=== PATIENT | male | born 1950 | race American Indian/Alaskan Native ===

== ENCOUNTER 2021-09-03 19:17 | Observation (INO) | payer MEDICARE ==
[2021-09-03] MEDS ORDERED: SODIUM CHLORIDE 0.9% 500 ML 500 ML IV ONE (19:51)
[2021-09-03] MEDS ORDERED: NITROGLYCERIN 0.4 MG TAB SUBL SL PRN ×2 (19:51→23:46)
[2021-09-03] MEDS ORDERED: MORPHINE 4 MG/1 ML INJ IV ONE (19:51)
[2021-09-03] MEDS ORDERED: PANTOPRAZOLE 40 MG INJ IV ONE (19:51)
[2021-09-03] MEDS ORDERED: ONDANSETRON 4 MG/2 ML INJ IV ONE (19:51)
--- NOTE | 2021-09-03 19:56 | Emergency Department Report ---
ED General Adult HPI - General Chief complaint: Chest Pain Stated complaint: CHEST PAIN/N/V Time Seen by Provider: 09/03/21 19:44 Source: patient, EMS ( EMS documentation not available at time of chart dictation ), RN notes reviewed, old records reviewed Mode of arrival: Stretcher - History of Present Illness Initial comments: The patient is a pleasant 71-year-old gentleman. His past medical history includes CAD, [place] x2, stent x1, diabetes, hypertension, hyperlipidemia, and s troke. The patient presents to the ER today with a complaint of central chest pain which is constant, does not radiate to the back, arms or neck. He endorses vomiting. Denies diaphoresis. Denies shortness of breath. Complains of abdominal pain, with nausea and vomiting. He is not sure what started first, the chest pain, abdominal pain, or nausea and vomiting. As per nursing team, he endorsed relief with nitroglycerin, and aspirin in the field, administered by EMS -: Sudden, hour(s) Location: chest, abdomen Consistency: constant Improves with: medication, rest Worsens with: none - Related Data Home Medications Medication Instructions Recorded Confirmed Last Taken metFORMIN [Glucophage] 850 mg PO BID 08/16/14 08/16/14 Unknown Previous Rx's Medication Instructions Recorded Last Taken Type Aspirin [Aspirin BABY CHEW TAB] 81 mg PO QDAY #30 tab.chew 08/22/14 Unknown Rx Folic Acid [Folvite] 1 mg PO DAILY #30 tablet 08/22/14 Unknown Rx ISOSORBIDE MONOnitrate [Imdur ER] 30 mg PO QDAY #30 tablet 08/22/14 Unknown Rx Metoprolol [Lopressor TAB] 50 mg PO QDAY #60 tablet 08/22/14 Unknown Rx Multivitamin Tab [Multiple Vitamin 1 each PO DAILY #30 tablet 08/22/14 Unknown Rx TAB (Theragran)] Thiamine [Vitamin B-1] 100 mg PO QDAY #30 tablet 08/22/14 Unknown Rx lisinopriL [Zestril TAB] 20 mg PO BID #60 tablet 08/22/14 Unknown Rx Allergies Allergy/AdvReac Type Severity Reaction Status Date / Time No Known Allergies Allergy Verified 08/17/14 00:53 ED Review of Systems ROS: Stated complaint: CHEST PAIN/N/V Other details as noted in HPI Constitutional: denies: fever Eyes: denies: eye discharge ENT: denies: epistaxis Respiratory: denies: cough Cardiovascular: chest pain Gastrointestinal: abdominal pain, nausea, vomiting Genitourinary: denies: dysuria, testicular pain Neurological: denies: weakness Hematological/Lymphatic: denies: easy bleeding ED Past Medical Hx - Past Medical History 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 - Surgical History Additional Surgical History: one stent - Social History Smoking Status: Never Smoker - Medications Home Medications: Home Medications Medication Instructions Recorded Confirmed Last Taken Type metFORMIN [Glucophage] 850 mg PO BID 08/16/14 08/16/14 Unknown History Aspirin [Aspirin BABY CHEW TAB] 81 mg PO QDAY #30 tab.chew 08/22/14 Unknown Rx Folic Acid [Folvite] 1 mg PO DAILY #30 tablet 08/22/14 Unknown Rx ISOSORBIDE MONOnitrate [Imdur ER] 30 mg PO QDAY #30 tablet 08/22/14 Unknown Rx Metoprolol [Lopressor TAB] 50 mg PO QDAY #60 tablet 08/22/14 Unknown Rx Multivitamin Tab [Multiple Vitamin 1 each PO DAILY #30 tablet 08/22/14 Unknown Rx TAB (Theragran)] Thiamine [Vitamin B-1] 100 mg PO QDAY #30 tablet 08/22/14 Unknown Rx lisinopriL [Zestril TAB] 20 mg PO BID #60 tablet 08/22/14 Unknown Rx ED Physical Exam - General Limitations: No Limitations General appearance: alert, anxious, obese - Head Head exam: Present: atraumatic, normocephalic - Eye Eye exam: Present: normal appearance, EOMI. Absent: nystagmus - ENT ENT exam: Present: normal exam, normal orophraynx, mucous membranes moist, normal external ear exam - Neck Neck exam: Present: normal inspection, full ROM. Absent: tenderness, me ningismus - Respiratory Respiratory exam: Present: normal lung sounds bilaterally. Absent: respiratory distress, wheezes, rales, rhonchi, stridor, decreased breath sounds - Cardiovascular Cardiovascular Exam: Present: regular rate, normal rhythm, normal heart sounds. Absent: bradycardia, tachycardia, irregular rhythm, systolic murmur, diastolic murmur, rubs, gallop - GI/Abdominal GI/Abdominal exam: Present: soft, tenderness. Absent: distended, guarding, rebound, rigid, pulsatile mass - Rectal Rectal exam: Present: deferred - Extremities Exam Extremities exam: Present: normal inspection, full ROM, other (2+ pulses noted in the bilateral upper and lower extremities. There is no palpable cord. negative Homans sign. Muscular compartments are soft. The pelvis is stable.). Absent: pedal edema, calf tenderness - Back Exam Back exam: Present: normal inspection. Absent: tenderness, CVA tenderness (R), CVA tenderness (L), paraspinal tenderness, vertebral tenderness - Neurological Exam Neurological exam: Present: alert, other (No facial droop. Tongue midline. Extraocular movements intact bilaterally. Facial sensation intact to light touch in V1, V2, V3 distribution bilaterally. 5 and a 5 strength in 4 ext remities. Sensation intact to light touch in 4 extremities.). Absent: motor sensory deficit - Psychiatric Psychiatric exam: Present: anxious - Skin Skin exam: Present: warm, dry, intact, normal color. Absent: rash ED Course Vital Signs 09/03/21 09/03/21 09/03/21 19:39 19:46 20:00 Temperature Pulse Rate 94 H 86 Respiratory 15 20 20 Rate Blood Pressure 158/99 168/94 O2 Sat by Pulse 98 96 96 Oximetry O2 Sat by Pulse Oximetry [ Digit-Finger] 09/03/21 09/03/21 09/03/21 20:16 20:27 20:30 Temperature 97.9 F Pulse Rate 88 Respiratory 17 16 Rate Blood Pressure 168/94 158/98 O2 Sat by Pulse 96 99 Oximetry O2 Sat by Pulse Oximetry [ Digit-Finger] 09/03/21 09/03/21 09/03/21 20:46 21:00 21:02 Temperature Pulse Rate 96 H 87 Respiratory 14 14 Rate Blood Pressure 158/98 172/97 O2 Sat by Pulse 98 97 98 Oximetry O2 Sat by Pulse Oximetry [ Digit-Finger] 09/03/21 09/03/21 09/03/21 21:16 21:30 21:46 Temperature Pulse Rate 88 89 91 H Respiratory 13 14 17 Rate Blood Pressure 172/97 162/95 162/95 O2 Sat by Pulse 97 97 97 Oximetry O2 Sat by Pulse Oximetry [ Digit-Finger] 09/03/21 09/03/21 09/03/21 22:00 22:16 22:28 Temperature Pulse Rate 89 Respiratory 20 12 Rate Blood Pressure 145/83 145/83 O2 Sat by Pulse 94 96 Oximetry O2 Sat by Pulse 98 Oximetry [ Digit-Finger] - Reevaluation(s) Reevaluation #1: 09/03/21 20:18 Differential diagnosis, include but not limited to: GERD, gastritis, hiatal hernia, pneumonia, costochondritis, acute coronary syndrome, pulmonary embolism, colitis, diverticulitis, obstruction, renal colic, pancreatitis Assessment and plan: 71-year-old gentleman with chest pain, nausea and vomiting, and abdominal tenderness. Denies travel, surgery, immobilization, DVT/PE risk factors. Not hypertensive, equal pulses in the upper and lower extremities, no pulsatile abdominal mass, doubt acute aortic syndrome. Suspect primary abdominal/GI etiology, causing nausea and vomiting, with subse quent chest pain. However, patient moderate to high risk for major adverse cardiac event as per heart score. EKG unchanged from prior. Low risk by Wells criteria for pulmonary embolism. Place patient on nurse monitoring. Obtain appropriate laboratory studies. Treat symptoms aggressively. X-ray the chest my interpretation negative for acute findings. Obtain CT scan of the abdomen pelvis, appropriate laboratory studies including troponin, and CT angiogram chest, if D-dimer elevated. Reassess after initial data points. Discussed this with the patient. He is agreeable to the plan of care. All questions answered. 09/03/21 23:46 CT scan of the chest negative for acute findings. CT scan abdomen pelvis suggestive of diverticulitis, pyelonephritis or both. Urinalysis not consistent with urinary tract infection. Antibiotics ordered. Patient received aspirin from EMS. Patient agreeable to admission for hospitalization for observation and treatment. Elevated lipase reviewed and appreciated. All questions answered. Hospital physician, Dr. Dieter Anders to admit to [facility] Medical decision makin-year-old gentleman with acute abdominal pain, nausea, vomiting and chest pain, requires admission for cardiac or stratification, antibiotics, and supportive care. - Pulse Oximetry Interpretation Digit-Finger Initial Pulse Oximetry Readin O2 Sat by Pulse Oximetry: 98 Actions Taken: none ED Medical Decision Making - Lab Data Result diagrams: 09/03/21 21:16 09/03/21 21:36 Lab Results 09/03/21 09/03/21 09/03/21 Range/Units 21:16 21:16 21:16 WBC 6.0 (4.5-11.0) K/mm3 RBC 4.01 (3.65-5.03) M/mm3 Hgb 12.2 (11.8-15.2) gm/dl Hct 37.1 (35.5-45.6) % MCV 93 (84-94) fl MCH 30 (28-32) pg MCHC 33 (32-34) % RDW 13.5 (13.2-15.2) % Plt Count 184 (140-440) K/mm3 Lymph % (Auto) 15.0 (13.4-35.0) % [place] % (Auto) 9.4 H (0.0-7.3) % Eos % (Auto) 0.1 (0.0-4.3) % Baso % (Auto) 0.9 (0.0-1.8) % Lymph # (Auto) 0.9 L (1.2-5.4) K/mm3 [place] # (Auto) 0.6 (0.0-0.8) K/mm3 Eos # (Auto) 0.0 (0.0-0.4) K/mm3 Baso # (Auto) 0.1 (0.0-0.1) K/mm3 Seg Neutrophils % 74.6 H (40.0-70.0) % Seg Neutrophils # 4.5 (1.8-7.7) K/mm3 PT 16.6 H (12.2-14.9) Sec. INR 1.20 H (0.87-1.13) D-Dimer 574.33 H (0-234) ng/mlDDU Sodium (137-145) mmol/L Potassium (3.6-5.0) mmol/L Chloride (98-107) mmol/L Carbon Dioxide (22-30) mmol/L Anion Gap mmol/L BUN (9-20) mg/dL Creatinine (0.8-1.3) mg/dL Estimated GFR ml/min BUN/Creatinine Ratio % Glucose (75-100) mg/dL Calcium (8.4-10.2) mg/dL Magnesium 1.80 (1.7-2.3) mg/dL Total Bilirubin (0.1-1.2) mg/dL Direct Bilirubin (0-0.2) mg/dL Indirect Bilirubin mg/dL AST (5-40) units/L ALT (7-56) units/L Alkaline Phosphatase (35-129) units/L Total Creatine Kinase 177 H (55-170) units/L Troponin T < 0.010 (0.00-0.029) ng/mL Total Protein (6.3-8.2) g/dL Albumin (3.9-5) g/dL Albumin/Globulin Ratio % Lipase (13-60) units/L // Range/Units 21:36 WBC (4.5-11.0) K/mm3 RBC (3.65-5.03) M/mm3 Hgb (11.8-15.2) gm/dl Hct (35.5-45.6) % MCV (84-94) fl MCH (28-32) pg MCHC (32-34) % RDW (13.2-15.2) % Plt Count (140-440) K/mm3 Lymph % (Auto) (13.4-35.0) % [place] % (Auto) (0.0-7.3) % Eos % (Auto) (0.0-4.3) % Baso % (Auto) (0.0-1.8) % Lymph # (Auto) (1.2-5.4) K/mm3 [place] # (Auto) (0.0-0.8) K/mm3 Eos # (Auto) (0.0-0.4) K/mm3 Baso # (Auto) (0.0-0.1) K/mm3 Seg Neutrophils % (40.0-70.0) % Seg Neutrophils # (1.8-7.7) K/mm3 PT (12.2-14.9) Sec. INR (0.87-1.13) D-Dimer (0-234) ng/mlDDU Sodium 144 (137-145) mmol/L Potassium 3.8 (3.6-5.0) mmol/L Chloride 100.0 (98-107) mmol/L Carbon Dioxide 24 (22-30) mmol/L Anion Gap 24 mmol/L BUN 15 (9-20) mg/dL Creatinine 1.3 (0.8-1.3) mg/dL Estimated GFR > 60 ml/min BUN/Creatinine Ratio 12 % Glucose 134 H (75-100) mg/dL Calcium 10.2 (8.4-10.2) mg/dL Magnesium (1.7-2.3) mg/dL Total Bilirubin 0.40 (0.1-1.2) mg/dL Direct Bilirubin < 0.2 (0-0.2) mg/dL Indirect Bilirubin 0.2 mg/dL AST 65 H (5-40) units/L ALT 35 (7-56) units/L Alkaline Phosphatase 64 (35-129) units/L Total Creatine Kinase (55-170) units/L Troponin T (0.00-0.029) ng/mL Total Protein 7.7 (6.3-8.2) g/dL Albumin 4.3 (3.9-5) g/dL Albumin/Globulin Ratio 1.3 % Lipase 130 H (13-60) units/L Vital Signs 09/03/21 09/03/21 09/03/21 19:39 19:46 20:00 Temperature Pulse Rate 94 H 86 Respiratory 15 20 20 Rate Blood Pressure 158/99 168/94 O2 Sat by Pulse 98 96 96 Oximetry O2 Sat by Pulse Oximetry [ Digit-Finger] 09/03/21 09/03/21 09/03/21 20:16 20:27 20:30 Temperature 97.9 F Pulse Rate 88 Respiratory 17 16 Rate Blood Pressure 168/94 158/98 O2 Sat by Pulse 96 99 Oximetry O2 Sat by Pulse Oximetry [ Digit-Finger] 09/03/21 09/03/21 09/03/21 20:46 21:00 21:02 Temperature Pulse Rate 96 H 87 Respiratory 14 14 Rate Blood Pressure 158/98 172/97 O2 Sat by Pulse 98 97 98 Oximetry O2 Sat by Pulse Oximetry [ Digit-Finger] 09/03/21 09/03/21 09/03/21 21:16 21:30 21:46 Temperature Pulse Rate 88 89 91 H Respiratory 13 14 17 Rate Blood Pressure 172/97 162/95 162/95 O2 Sat by Pulse 97 97 97 Oximetry O2 Sat by Pulse Oximetry [ Digit-Finger] 09/03/21 21:54 Temperature Pulse Rate Respiratory Rate Blood Pressure O2 Sat by Pulse Oximetry O2 Sat by Pulse 98 Oximetry [ Digit-Finger] - EKG Data -: EKG Interpreted by Me EKG shows normal: sinus rhythm Rate: normal - EKG Data 09/03/21 20:17 EKG #1 is interpreted at 19: 46 Sinus rhythm, rate 86 bpm. Left axis deviation. Normal P wave axis. Q waves noted in inferior leads. QTc 4 5 7 ms. Unchanged from prior EKG from August 2014. This is an abnormal EKG. This is not a STEMI - Radiology Data Radiology results: pending, report reviewed, image reviewed interpreted by me: 1 view x-ray of the chest, interpreted by myself, shows clear lungs, no infiltrate, no pneumothorax CHEST 1 VIEW INDICATION: Acute chest pain with nausea and. COMPARISON: 08/16/2014 FINDINGS: Support devices: None. Heart: Normal. Lungs/Pleura: No acute pulmonary or pleural findings. IMPRESSION: 1. No acute findings. Signer Name: Chava Esteban MD Signed: 09/03/2021 7:39 PM Workstation Name: [id number] CT ABDOMEN AND PELVIS WITH CONTRAST INDICATION / CLINICAL INFORMATION: Acute abdominal pain, with nausea and vomiting. TECHNIQUE: Axial CT images were obtained through the abdomen and pelvis after 100 cc Omnipaque [address] scans at this location are performed using CT dose reduction for ALARA by means of automated exposure control. COMPARISON: CT angiography of the chest performed same date FINDINGS: LOWER CHEST: Recent comparison study. LIVER: Diffuse low attenuation compatible with hepatic steatosis. Portal vein patent. GALLBLADDER: No significant abnormality. BILE DUCTS: No significant abnormality. SPLEEN: Punctate calcifications compatible prior granulomatous disease. PANCREAS: No significant abnormality. ADRENALS: Minimal nodularity of the bilate ral adrenal glands indeterminate for adenoma. RIGHT KIDNEY / URETER: Multiple small subcentimeter foci of hypoattenuation are noted compatible small cyst possibly infarcts. Additionally a larger cyst measuring approximately 1.3 cm projects in the lower pole right kidney. Mild renal vascular calcifications are present. No urolithiasis. Moderate perinephric fat stranding. LEFT KIDNEY / URETER: Multiple small cysts and/or infarcts are present. Minimal vascular calcifications are moderate. No urolithiasis. Moderate perinephric fat stranding. STOMACH / DUODENUM / SMALL BOWEL: No significant abnormality. COLON: Diverticulosis of the large bowel is demonstrated. Proximal sigmoid colon demonstrates minimal wall thickening without obvious inflammatory change. This may reflect lack of distention. APPENDIX: No significant abnormality. PERITONEUM: No free air or free fluid are present within the abdomen or pelvis. LYMPH NODES: No significant adenopathy. AORTA / ARTERIES: No significant abnormality. IVC / VEINS: No significant abnormality. URINARY BLADDER: No significant abnormality. REPRODUCTIVE ORGANS: Prostate appears enlarged. ADDITIONAL ABDOMINAL/PELVIC FINDINGS: None. SKELETAL SYSTEM: No acute osseous findings. Moderate facet arthropathy of the lower lumbar spine. IMPRESSION: 1. Diffuse hypoattenuation in the liver suggesting hepatic steatosis. 2. Moderate bilateral perinephric fat stranding. Nonspecific finding and could reflect evidence of infection or inflammatory process. Correlation with urinalysis and culture are recommended. 3. Bilateral adrenal nodules indeterminate for adenoma. 4. Total colonic diverticulosis with some regions of bowel wall thickening but no distinct inflammatory changes. These regions are not well distended and in part the appearance is thought to reflect lack of distention. Very early diverticulitis not excluded. Signer Name: Hair Hughes II, MD Signed: 09/03/2021 10:33 PM Workstation Name: [id number] CTA CHEST WITH CONTRAST INDICATION / CLINICAL INFORMATION: Acute chest pain with nausea and vomiting. TECHNIQUE: Axial CT images were obtained through the chest after injection of 100 cc Omnipaque 350 IV contrast. 3 plane MIP and/or 3D reconstructions were produced. All CT scans at this location are performed using CT dose reduction for ALARA by means of automated exposure control. COMPARISON: CT of the abdomen and pelvis performed same date. FINDINGS: VASCULAR FINDINGS: PULMONARY ARTERY: Pulmonary artery is normal in size. No filling defects are present compatible with pulmonary artery embolus.. THORACIC AORTA: No significant abnormality. CORONARY ARTERY CALCIFICATION: Present -- Severe. NONVASCULAR FINDINGS: LOWER NECK:Soft tissues of the lower neck and thyroid demonstrate no significant abnormalities or acute findings. HEART: No significant abnormality. MEDIASTINUM / VANIA: No significant abn ormality. ESOPHAGUS: No significant abnormality. LYMPH NODES: Partially calcified subcarinal, right hilar, right paratracheal lymph nodes are demonstrated. No pathologically enlarged lymph nodes are noted within the axilla, vania, mediastinum. LUNGS: Calcified granuloma right lower lobe. Lungs appear blurred by motion but otherwise are clear. No endobronchial lesions. PLEURA: No pleural effusion. No pneumothorax. THORACIC SOFT TISSUES: No significant abnormality of the chest wall or upper thoracic musculature. BONES: Mild to moderate degenerative changes of the thoracic spine. No acute osseous findings. ADDITIONAL CHEST FINDINGS: None. UPPER ABDOMEN: Please see comparison study. IMPRESSION: 1. No CT evidence for pulmonary embolism. 2. No acute findings. Signer Name: Hair Hughes II, MD Signed: 09/03/2021 10:29 PM Workstation Name: [id number] Critical care attestation.: If time is entered above; I have spent that time in minutes in the direct care of this critically ill patient, excluding procedure time. ED Disposition Clinical Impression: Acute chest pain, Acute abdominal pain Disposition: 09 ADMITTED INPATIENT Is pt being admited?: Yes Does the pt Need Aspirin: No (Given by EMS) Condition: Good Instructions: Chest Pain (ED) Referrals: PRIMARY CARE, [Primary Care Provider] - 3-5 Days Heart Score - HEART Score History: Moderately suspicious EKG: Non-specific Age: > 65 Risk factors: > 3 risk factors or hx of atherosclerotic disease Troponin: < normal limit HEART Score: 6 - EKG Read Time Time EKG Completed: 19:46 EKG Read Time: 19:46 - Critical Actions Critical Actions: 4-6 pts:12-16.6% risk of adverse cardiac event. Should be admitted
[2021-09-03] MEDS ORDERED: METOCLOPRAMIDE 10 MG/2 ML INJ IV ONE (20:28)
--- NOTE | 2021-09-03 20:44 | XRay Report ---
CHEST 1 VIEW INDICATION: Acute chest pain with nausea and. COMPARISON: 08/16/2014 FINDINGS: Support devices: None. Heart: Normal. Lungs/Pleura: No acute pulmonary or pleural findings. IMPRESSION: 1. No acute findings. Signer Name: Chava Esteban MD Signed: 09/03/2021 8:39 PM Workstation Name: [id number]
[2021-09-03 21:56] LABS: Basophils # (Auto) 0.1 K/mm3 (0.0-0.1); Basophils % (Auto) 0.9 % (0.0-1.8); Eosinophils % (Auto) 0.1 % (0.0-4.3); Hematocrit 37.1 % (35.5-45.6); Hemoglobin 12.2 gm/dl (11.8-15.2); Lymphocytes # (Auto) 0.9 K/mm3 (1.2-5.4); Mean Corpuscular HGB Conc 33 % (32-34); Mean Corpuscular Volume 93 fl (84-94); Monocytes # (Auto) 0.6 K/mm3 (0.0-0.8); Monocytes % (Auto) 9.4 % (0.0-7.3); Platelet Count 184 K/mm3 (140-440); Red Blood Count 4.01 M/mm3 (3.65-5.03); Red Cell Distribution Width 13.5 % (13.2-15.2)
[2021-09-03 22:14] LABS: INR 1.2 (0.87-1.13)
[2021-09-03 22:21] LABS: Alanine Aminotransferase 35 units/L (7-56); Albumin 4.3 g/dL (3.9-5); BUN/Creatinine Ratio 12; Blood Urea Nitrogen 15 mg/dL (9-20); Calcium 10.2 mg/dL (8.4-10.2); Hemolysis Index 5
[2021-09-03 22:23] LABS: Bilirubin,Direct < 0.2 mg/dL (0-0.2)
[2021-09-03 23:34] LABS: Bilirubin,Urine NEG (Negative); Blood,Urine NEG (Negative); Color,Urine Yellow (Yellow); Urobilinogen,Urine < 2.0 mg/dL (<2.0)
--- NOTE | 2021-09-03 23:34 | Cat Scan Report ---
CTA CHEST WITH CONTRAST INDICATION / CLINICAL INFORMATION: Acute chest pain with nausea and vomiting. TECHNIQUE: Axial CT images were obtained through the chest after injection of 100 cc Omnipaque 350 IV contrast. 3 plane MIP and/or 3D reconstructions were produced. All CT scans at this location are per formed using CT dose reduction for ALARA by means of automated exposure control. COMPARISON: CT of the abdomen and pelvis performed same date. FINDINGS: VASCULAR FINDINGS: PULMONARY ARTERY: Pulmonary artery is normal in size. No filling defects are present compatible with pulmonary artery embolus.. THORACIC AORTA: No significant abnormality. CORONARY ARTERY CALCIFICATION: Present -- Severe. NONVASCULAR FINDINGS: LOWER NECK:Soft tissues of the lower neck and thyroid demonstrate no significant abnormalities or acu te findings. HEART: No significant abnormality. MEDIASTINUM / BERNADINE: No significant abnormality. ESOPHAGUS: No significant abnormality. LYMPH NODES: Partially calcified subcarinal, right hilar, right paratracheal lymph nodes are demonstr ated. No pathologically enlarged lymph nodes are noted within the axilla, bernadine, mediastinum. LUNGS: Calcified granuloma right lower lobe. Lungs appear blurred by motion but otherwise are clear. No endobronchial lesions. PLEURA: No pleural effusion. No pneumothorax. THORACIC SOFT TISSUES: No significant abnormality of the chest wall or upper thoracic musculature. BONES: Mild to moderate degenerative changes of the thoracic spine. No acute osseous findings. ADDITIONAL CHEST FINDINGS: None. UPPER ABDOMEN: Please see comparison study. IMPRESSION: 1. No CT evidence for pulmonary embolism. 2. No acute findings. Signer Name: Hair Hughes II, MD Signed: 09/03/2021 11:29 PM Workstation Name: [id number]
--- NOTE | 2021-09-03 23:37 | Cat Scan Report ---
CT ABDOMEN AND PELVIS WITH CONTRAST INDICATION / CLINICAL INFORMATION: Acute abdominal pain, with nausea and vomiting. TECHNIQUE: Axial CT images were obtained through the abdomen and pelvis after 100 cc Omnipaque [address] scans at this location are performed using CT dose reduction for ALARA by means of automated exposure control. COMPARISON: CT angiography of the chest performed same date FINDINGS: LOWER CHEST: Recent comparison study. LIVER: Diffuse low attenuation compatible with hepatic steatosis. Portal vein patent. GALLBLADDER: No significant abnormality. BILE DUCTS: No significant abnormality. SPLEEN: Punctate calcifications compatible prior granulomatous disease. PANCREAS: No significant abnormality. ADRENALS: Minimal nodularity of the bilateral adrenal glands indeterminate for adenoma. RIGHT KIDNEY / URETER: Multiple small subcentimeter foci of hypoattenuation are noted compatible smal l cyst possibly infarcts. Additionally a larger cyst measuring approximately 1.3 cm projects in the l ower pole right kidney. Mild renal vascular calcifications are present. No urolithiasis. Moderate per inephric fat stranding. LEFT KIDNEY / URETER: Multiple small cysts and/or infarcts are present. Minimal vascular calcificatio ns are moderate. No urolithiasis. Moderate perinephric fat stranding. STOMACH / DUODENUM / SMALL BOWEL: No significant abnormality. COLON: Diverticulosis of the large bowel is demonstrated. Proximal sigmoid colon demonstrates minimal wall thickening without obvious inflammatory change. This may reflect lack of distention. APPENDIX: No significant abnormality. PERITONEUM: No free air or free fluid are present within the abdomen or pelvis. LYMPH NODES: No significant adenopathy. AORTA / ARTERIES: No significant abnormality. IVC / VEINS: No significant abnormality. URINARY BLADDER: No significant abnormality. REPRODUCTIVE ORGANS: Prostate appears enlarged. ADDITIONAL ABDOMINAL/PELVIC FINDINGS: None. SKELETAL SYSTEM: No acute osseous findings. Moderate facet arthropathy of the lower lumbar spine. IMPRESSION: 1. Diffuse hypoattenuation in the liver suggesting hepatic steatosis. 2. Moderate bilateral perinephric fat stranding. Nonspecific finding and could reflect evidence of in fection or inflammatory process. Correlation with urinalysis and culture are recommended. 3. Bilateral adrenal nodules indeterminate for adenoma. 4. Total colonic diverticulosis with some regions of bowel wall thickening but no distinct inflammato ry changes. These regions are not well distended and in part the appearance is thought to reflect lac k of distention. Very early diverticulitis not excluded. Signer Name: Hair Hughes II, MD Signed: 09/03/2021 11:33 PM Workstation Name: [id number]
[2021-09-03] MEDS ORDERED: metroNIDAZOLE/NS 500 MG/100 ML 500 MG/100 ML BAG IV NR (23:45)
[2021-09-03] MEDS ORDERED: ONDANSETRON 4 MG/2 ML INJ IV PRN (23:46)
[2021-09-03] MEDS ORDERED: traMADol 50 MG TAB PO PRN (23:46)
[2021-09-03] MEDS ORDERED: MORPHINE 4 MG/1 ML INJ IV PRN ×2 (23:46)
[2021-09-03] MEDS ORDERED: MAGNESIUM HYDROXIDE (MOM) ORAL LIQD UDC PO PRN (23:46)
[2021-09-03] MEDS ORDERED: MORPHINE 2 MG/1 ML INJ IV PRN (23:46)
[2021-09-03] MEDS ORDERED: ACETAMINOPHEN 325 MG TAB PO PRN ×2 (23:46)
[2021-09-03] MEDS ORDERED: DEXTROSE 50% IN WATER (25GM) 50 ML SYRINGE IV PRN (23:52)
--- NOTE | 2021-09-03 23:59 | History and Physical Report ---
History of Present Illness Date of examination: 09/03/21 Date of admission: 09/03/2021 Chief complaint: Chest Pain Nausea and Vomiting History of present illness: 1-year-old -U[place] male with known history of coronary artery disease, history of [place] x2 with stent placement in the past, diabetes mellitus, hypertension, hyperlipidemia, CVA presenting to the emergency room today complaining of chest pain. Chest pain is said to be substernal and radiating towards the back, left upper extremity in the neck. Patient has also had some nausea and vomiting with associated abdominal discomfort. Abdominal pain is more in the epigastric region. He denies any fever or chills, no headache or dizziness and no diaphoresis. Patient denies any shortness of breath, no hematemesis, no constipation or diarrhea. Denies any hematuria or dysuria. Patient denies any sick contacts and no recent travel. Denies any contact with anyone with COVID-19. Patient had sublingual nitroglycerin and aspirin prior to arriving in the emergency room with good relief. Work-up in the emergency room today, lab was significant for elevated D-dimer of 574, lipase of 130. Chest x-ray shows no acute findings. CT angiogram of the chest shows no acute abnormality. CT abdomen and pelvis reveals findings suggesting hepatic steatosis. LE diverticulitis can also not be excluded. There is also moderate bilateral perinephric fat stranding. Findings could reflect evidence of infection or inflammatory process Patient commenced on empiric IV antibiotics. Will also be admitted for chest pain work-up. Past History Past Medical History: acute LA (X2 with stent placement), CAD, diabetes, hypertension, hyperlipidemia, stroke Past Surgical History: PTCA Social history: no significant social history Family history: no significant family history Medications and Allergies Allergies Allergy/AdvReac Type Severity Reaction Status Date / Time No Known Allergies Allergy Verified 08/17/14 00:53 Home Medications Medication Instructions Recorded Confirmed Last Taken Type metFORMIN [Glucophage] 850 mg PO BID 08/16/14 08/16/14 Unknown History Aspirin [Aspirin BABY CHEW TAB] 81 mg PO QDAY #30 tab.chew 08/22/14 Unknown Rx Folic Acid [Folvite] 1 mg PO DAILY #30 tablet 08/22/14 Unknown Rx ISOSORBIDE MONOnitrate [Imdur ER] 30 mg PO QDAY #30 tablet 03/16/15 Unknown Rx Metoprolol [Lopressor TAB] 50 mg PO QDAY #60 tablet 08/22/14 Unknown Rx Multivitamin Tab [Multiple Vitamin 1 each PO DAILY #30 tablet 08/22/14 Unknown Rx TAB (Theragran)] Thiamine [Vitamin B-1] 100 mg PO QDAY #30 tablet 08/22/14 Unknown Rx lisinopriL [Zestril TAB] 20 mg PO BID #60 tablet 08/22/14 Unknown Rx Active Meds: Active Medications Acetaminophen (Acetaminophen 325 Mg Tab) 650 mg PO Q4H PRN PRN Reason: Pain MILD(1-3)/Fever >100.5/TAYLOR Acetaminophen (Acetaminophen 325 Mg Tab) 650 mg PO Q6H PRN PRN Reason: Pain, Mild (1-3) Aspirin (Aspirin Ec 325 Mg Tab) 325 mg PO QDAY DEV Dextrose (Dextrose 50% In Water (25gm) 50 Ml Syringe) 50 ml IV Q30MIN PRN; Protocol PRN Reason: Hypoglycemia Levofloxacin/Dextrose (Levaquin 750mg/150ml) 750 mg in 150 mls @ 100 mls/hr IV ONCE ONE; Protocol Stop: 09/04/21 01:10 Metronidazole (Flagyl 500 Mg/100 Ml) 500 mg in 100 mls @ 200 mls/hr IV NOW NR; Protocol Stop: 09/04/21 00:14 Insulin Human Lispro (Insulin Lispro 100 Unit/Ml) 0 unit SUB-Q ACHS DEV; Protocol Magnesium Hydroxide (Magnesium Hydroxide (Mom) Oral Liqd Udc) 30 ml PO Q4H PRN PRN Reason: Constipation Morphine Sulfate (Morphine 2 Mg/1 Ml Inj) 2 mg IV Q4H PRN PRN Reason: Pain, Moderate (4-6) Morphine Sulfate (Morphine 4 Mg/1 Ml Inj) 4 mg IV Q4H PRN PRN Reason: Pain , Severe (7-10) Morphine Sulfate (Morphine 4 Mg/1 Ml Inj) 2 mg IV Q5MIN PRN PRN Reason: Chest Pain unrelieved by NTG Nitroglycerin (Nitroglycerin 0.4 Mg Tab Subl) 0.4 mg SL .Q5MIN PRN PRN Reason: Chest Pain Nitroglycerin (Nitroglycerin 0.4 Mg Tab Subl) 0.4 mg SL Q5M PRN PRN Reason: Chest Pain Ondansetron HCl (Ondansetron 4 Mg/2 Ml Inj) 4 mg IV Q8H PRN PRN Reason: Nausea And Vomiting Sodium Chloride (Sodium Chloride 0.9% 10 Ml Flush Syringe) 10 ml IV BID DEV Sodium Chloride (Sodium Chloride 0.9% 10 Ml Flush Syringe) 10 ml IV PRN PRN PRN Reason: LINE FLUSH Tramadol HCl (Tramadol 50 Mg Tab) 50 mg PO Q6H PRN PRN Reason: Pain, Moderate (4-6) Review of Systems Constitutional: no fever, no chills Ears, nose, mouth and throat: no nasal congestion, no sore throat Cardiovascular: chest pain, no palpitations Respiratory: no cough, no shortness of breath Gastrointestinal: abdominal pain, nausea, vomiting, no diarrhea, no BRBPR, no melena Genitourinary Male: no dysuria, no hematuria, no flank pain Musculoskeletal: no neck pain, no low back pain Integumentary: no rash, no pruritis Neurological: no headaches, no confusion Psychiatric: no anxiety, no depression Endocrine: no polyphagia, no polydipsia, no polyuria, no nocturia Exam - Constitutional Vitals: Temp Pulse Resp BP Pulse Ox 97.9 F 89 12 145/83 98 09/03/21 20:27 09/03/21 22:00 09/03/21 22:16 09/03/21 22:16 09/03/21 23:47 General appearance: Present: no acute distress, well-nourished - EENT Eyes: Present: PERRL, EOM intact. Absent: scleral icterus ENT: hearing intact, clear oral mucosa, dentition normal - Neck Neck: Present: supple, normal ROM - Respiratory Respiratory effort: normal Respiratory: bilateral: CTA - Cardiovascular Rhythm: regular Heart Sounds: Present: S1 & S2. Absent: gallop, systolic murmur, diastolic murmur, rub, click - Extremities Extremities: no ischemia, pulses intact, pulses symmetrical, No edema, normal temperature, normal color, Full ROM Peripheral Pulses: within normal limits - Abdominal General gastrointestinal: Present: soft, non-tender, non-distended, normal bowel sounds. Absent: mass - Integumentary Integumentary: Present: clear, warm, dry, normal turgor. Absent: rash - Musculoskeletal Musculoskeletal: strength equal bilaterally - Psychiatric Psychiatric: appropriate mood/affect, intact judgment & insight, memory intact, cooperative - Neurologic Neurologic: CNII-XII intact, no focal deficits, moves all extremities HEART Score - HEART Score History: Slightly suspicious EKG: Non-specific Age: > 65 Risk factors: > 3 risk factors or hx of atherosclerotic disease Troponin: Troponin T < 0.010 ng/mL (0.00-0.029) 09/03/21 21:16 Troponin: < normal limit HEART Score: 5 - Critical Actions Critical Actions: 4-6 pts:12-16.6% risk of adverse cardiac event. Should be admitted Results - Labs CBC & Chem 7: 09/03/21 21:16 09/03/21 21:36 Labs: Abnormal lab results 09/03/21 09/03/21 09/03/21 Range/Units 21:16 21:16 21:16 [place] % (Auto) 9.4 H (0.0-7.3) % Lymph # (Auto) 0.9 L (1.2-5.4) K/mm3 Seg Neutrophils % 74.6 H (40.0-70.0) % PT 16.6 H (12.2-14.9) Sec. INR 1.20 H (0.87-1.13) D-Dimer 574.33 H (0-234) ng/mlDDU Glucose (75-100) mg/dL AST (5-40) units/L Total Creatine Kinase 177 H (55-170) units/L Lipase (13-60) units/L Urine pH (5.0-7.0) 09/03/21 09/03/21 Range/Units 21:36 23:18 [place] % (Auto) (0.0-7.3) % Lymph # (Auto) (1.2-5.4) K/mm3 Seg Neutrophils % (40.0-70.0) % PT (12.2-14.9) Sec. INR (0.87-1.13) D-Dimer (0-234) ng/mlDDU Glucose 134 H (75-100) mg/dL AST 65 H (5-40) units/L Total Creatine Kinase (55-170) units/L Lipase 130 H (13-60) units/L Urine pH 8.0 H (5.0-7.0) Assessment and Plan - Patient Problems (1) Acute chest pain Current Visit: Yes Status: Acute Plan to address problem: Patient placed on telemetry. We will check serial cardiac enzymes. Consult placed to cardiology for evaluation and recommendations. Patient started on aspirin, sublingual nitroglycerin and IV morphine as needed for chest pain. (2) Acute abdominal pain Current Visit: Yes Status: Acute Plan to address problem: Etiology unclear. CT abdomen cannot exclude early diverticulitis. Patient commenced on empiric IV antibiotics. (3) CAD (coronary artery disease) Current Visit: No Status: Chronic Plan to address problem: Patient is status post stent placement in the past. We will continue to monitor on telemetry. Await cardiology evaluation. (4) Diabetes Current Visit: No Status: Chronic Plan to address problem: Placed on sliding scale insulin. We will monitor Accu-Cheks. (5) History of stroke Current Visit: No Status: Chronic Plan to address problem: Stable. Continue on daily aspirin. (6) Hypertension Current Visit: No Status: Chronic Plan to address problem: We will resume routine home medications and monitor vital signs closely. (7) DVT prophylaxis Current Visit: Yes Status: Acute Plan to address problem: Patient placed on subcutaneous heparin. (8) Full code status Current Visit: Yes Status: Acute Plan to address problem: Patient is full code.
[2021-09-04] MEDS ORDERED: DEXTROSE 10% *Hypoglycemia IV PRN (00:01)
[2021-09-04 00:46] LABS: BUN/Creatinine Ratio 11; Blood Urea Nitrogen 16 mg/dL (9-20); Hemolysis Index 8
[2021-09-04] MEDS ORDERED: hydrALAZINE 20 MG/1 ML INJ IV PRN (03:59)
[2021-09-04] MEDS ORDERED: SODIUM CHLORIDE 0.9% 100 ML IVPB IV SCH (05:00)
[2021-09-04] MEDS ORDERED: SODIUM CHLORIDE 0.9% 1000 ML 1,000 ML IV SCH (05:15)
[2021-09-04] MEDS: HEPARIN 5,000 UNIT/1 ML VIAL SUB-Q SCH ×3 (06:00→21:23)
[2021-09-04 06:06] LABS: Basophils % (Auto) 0.2 % (0.0-1.8); Hematocrit 36.5 % (35.5-45.6); Hemoglobin 11.8 gm/dl (11.8-15.2); Lymphocytes # (Auto) 0.6 K/mm3 (1.2-5.4); Lymphocytes % (Auto) 8.9 % (13.4-35.0); Mean Corpuscular HGB Conc 32 % (32-34); Mean Corpuscular Volume 94 fl (84-94); Monocytes # (Auto) 0.6 K/mm3 (0.0-0.8); Platelet Count 182 K/mm3 (140-440); Red Blood Count 3.88 M/mm3 (3.65-5.03); Red Cell Distribution Width 13.4 % (13.2-15.2)
[2021-09-04 06:31] LABS: BUN/Creatinine Ratio 11; Blood Urea Nitrogen 15 mg/dL (9-20); Calcium 9.5 mg/dL (8.4-10.2); Hemolysis Index 4
[2021-09-04] MEDS: INSULIN LISPRO 100 UNIT/ML SUB-Q SCH ×3 (07:14→18:03)
[2021-09-04] MEDS ORDERED: REGADENOSON 0.4 MG/5 ML INJ IV ONE (07:51)
[2021-09-04] MEDS ORDERED: metroNIDAZOLE/NS 500 MG/100 ML 500 MG/100 ML BAG IV SCH (08:00)
[2021-09-04] MEDS: ASPIRIN EC 325 MG TAB PO SCH (10:30)
--- NOTE | 2021-09-04 10:51 | Nuclear Medicine Report ---
APPROVED REPORT Exam: Nuclear Stress Test Indication: Chest pain [id number] Ht: 5 ft 9 in Wt: 203 lbs BSA: 2.08 m2 HR: 91 bpmBP: 175/90 mmHgBMI: 29.97 Rhythm: Sinus Rhythm Stress Test Details Stress Test: Pharmacologic stress testing performed using 0.4 mg of regadenoson per 5 mL given IV over 10 seconds. Reason for pharmacologic stress test: physical limitation. HR Resting HR: 91 bpm Max HR Achieved: 122 bpm Max Heart Rate (APMHR): 148.817684 bpm Target HR (85% APMHR): 125.407059 bpm % of APMHR: 82.43 Recovery HR: 110 bpm BP Resting BP: 175/90 mmHg Max BP: 183/92 mmHg Recovery BP: 171/93 mmHg ECG Resting ECG: Sinus Rhythm Stress ECG: Sinus Tachycardia Clinical Reason for Termination: Completed protocol Stress Symptoms: None NM EXAM: Myocardial Perfusion REST/STRESS Imaging Protocol: Rest Tc-99m/Stress Tc-99m 1 day Resting Data Rest SPECT myocardial perfusion imaging was performed in supine position 45 minutes following the intravenous injection of 10 mCi of Tc-99m Myoview. Time of rest injection: 0700 Pharmacologic Stress Pharmacologic stress test was performed by injecting Regadenoson 0.4 mg IV push followed by the intravenous injection of 28 mCi of Tc-99m Myoview. Time of stress injection: 0840 Gated Stress SPECT was performed 30 minutes after stress injection. The images were gated to evaluate regional wall motion and calculate left ventricular ejection fraction. Study Quality Study: excellent Lung Uptake: Normal Perfusion Wall Motion The rest and stress images show normal left ventricular wall motion. Nuclear Conclusion ECG Findings: negative for ischemia Clinical Findings: negative for ischemia Nuclear Findings: negative for ischemia Exercise Capacity: not assessed Left Ventricular Function: normal Normal study. No scintigraphic evidence for myocardial ischemia or scar. Normal left ventricular size and function with no regional wall motion abnormalities.
--- NOTE | 2021-09-04 11:48 | Progress Note ---
Assessment and Plan Assessment and plan: 71-year-old -[place]enian male with known history of coronary artery disease, history of [place] x2 with stent placement in the past, diabetes mellitus, hypertension, hyperlipidemia, CVA presented to the emergency room today complaining of chest pain and abdominal pain. Work-up in the emergency room revealed a D-dimer of 574, lipase of 130. Chest x-ray shows no acute findings. CT angiogram of the chest shows no acute abnormality. CT abdomen and pelvis reveals findings suggesting hepatic steatosis. LE diverticulitis can also not be excluded. There is also moderate bilateral perinephric fat stranding. Findings could reflect evidence of infection or inflammatory process Chest pain Coronary artery disease Abdominal pain Diverticulitis Diabetes mellitus type 2 History of CVA Hypertension Perinephric stranding 09/04/2021. Continue IV antibiotics. ID consulted. The patient underwent str ess test this morning. Cardiology consulted. History Interval history: No new issues overnight. Hospitalist Physical - Constitutional Vitals: Temp Pulse Resp BP Pulse Ox 97.5 F L 73 17 172/95 99 09/04/21 05:33 09/04/21 06:00 09/04/21 07:45 09/04/21 08:43 09/04/21 05:33 General appearance: Present: no acute distress, well-nourished - EENT Eyes: Present: PERRL, EOM intact ENT: hearing intact, clear oral mucosa, dentition normal - Neck Neck: Present: supple, normal ROM - Respiratory Respiratory effort: normal Respiratory: bilateral: CTA - Cardiovascular Rhythm: regular Heart Sounds: Present: S1 & S2. Absent: gallop, rub - Extremities Extremities: no ischemia, No edema, Full ROM - Abdominal General gastrointestinal: soft, non-tender, non-distended, normal bowel sounds - Integumentary Integumentary: Present: clear, warm, dry - Neurologic Neurologic: CNII-XII intact, moves all extremities HEART Score - HEART Score EKG: Non-specific Age: > 65 Risk factors: > 3 risk factors or hx of atherosclerotic disease Troponin: Troponin T < 0.010 ng/mL (0.00-0.029) 09/04/21 05:34 Troponin: < normal limit - Critical Actions Critical Actions: 4-6 pts:12-16.6% risk of adverse cardiac event. Should be admitted Results - Labs CBC & Chem 7: 09/04/21 05:34 09/04/21 05:34 Labs: Laboratory Last Values WBC 6.9 K/mm3 (4.5-11.0) 09/04/21 05:34 RBC 3.88 M/mm3 (3.65-5.03) 09/04/21 05:34 Hgb 11.8 gm/dl (11.8-15.2) 09/04/21 05:34 Hct 36.5 % (35.5-45.6) 09/04/21 05:34 MCV 94 fl (84-94) 09/04/21 05:34 MCH 30 pg (28-32) 09/04/21 05:34 MCHC 32 % (32-34) 09/04/21 05:34 RDW 13.4 % (13.2-15.2) 09/04/21 05:34 Plt Count 182 K/mm3 (140-440) 09/04/21 05:34 Lymph % (Auto) 8.9 % (13.4-35.0) L 09/04/21 05:34 [place] % (Auto) 8.0 % (0.0-7.3) H 09/04/21 05:34 Eos % (Auto) 0.0 % (0.0-4.3) 09/04/21 05:34 Baso % (Auto) 0.2 % (0.0-1.8) 09/04/21 05:34 Lymph # (Auto) 0.6 K/mm3 (1.2-5.4) L 09/04/21 05:34 [place] # (Auto) 0.6 K/mm3 (0.0-0.8) 09/04/21 05:34 Eos # (Auto) 0.0 K/mm3 (0.0-0.4) 09/04/21 05:34 Baso # (Auto) 0.0 K/mm3 (0.0-0.1) 09/04/21 05:34 Seg Neutrophils % 82.9 % (40.0-70.0) H 09/04/21 05:34 Seg Neutrophils # 5.7 K/mm3 (1.8-7.7) 09/04/21 05:34 PT 16.6 Sec. (12.2-14.9) H 09/03/21 21:16 INR 1.20 (0.87-1.13) H 09/03/21 21:16 D-Dimer 574.33 ng/mlDDU (0-234) H 09/03/21 21:16 Sodium 140 mmol/L (137-145) 09/04/21 05:34 Potassium 4.9 mmol/L (3.6-5.0) 09/04/21 05:34 Chloride 98.3 mmol/L (98-107) 09/04/21 05:34 Carbon Dioxide 25 mmol/L (22-30) 09/04/21 05:34 Anion Gap 22 mmol/L 09/04/21 05:34 BUN 15 mg/dL (9-20) 09/04/21 05:34 Creatinine 1.4 mg/dL (0.8-1.3) H 09/04/21 05:34 Estimated GFR > 60 ml/min 09/04/21 05:34 BUN/Creatinine Ratio 11 % 09/04/21 05:34 Glucose 127 mg/dL (75-100) H 09/04/21 05:34 Calcium 9.5 mg/dL (8.4-10.2) 09/04/21 05:34 Magnesium 1.80 mg/dL (1.7-2.3) 09/03/21 21:16 Total Bilirubin 0.40 mg/dL (0.1-1.2) 09/03/21 21:36 Direct Bilirubin < 0.2 mg/dL (0-0.2) 09/03/21 21:36 Indirect Bilirubin 0.2 mg/dL 09/03/21 21:36 AST 65 units/L (5-40) H 09/03/21 21:36 ALT 35 units/L (7-56) 09/03/21 21:36 Alkaline Phosphatase 64 units/L (35-129) 09/03/21 21:36 Total Creatine Kinase 177 units/L (55-170) H 09/03/21 21:16 Troponin T < 0.010 ng/mL (0.00-0.029) 09/04/21 05:34 Total Protein 7.7 g/dL (6.3-8.2) 09/03/21 21:36 Albumin 4.3 g/dL (3.9-5) 09/03/21 21:36 Albumin/Globulin Ratio 1.3 % 09/03/21 21:36 Lipase 130 units/L (13-60) H 09/03/21 21:36 Urine Color Yellow (Yellow) 09/03/21 23:18 Urine Turbidity Clear (Clear) 09/03/21 23:18 Urine pH 8.0 (5.0-7.0) H 09/03/21 23:18 Ur Specific [place] 1.018 (1.003-1.030) 09/03/21 23:18 Urine Protein 100 mg/dl mg/dL (Negative) 09/03/21 23:18 Urine Glucose (UA) Neg mg/dL (Negative) 09/03/21 23:18 Urine Ketones Tr mg/dL (Negative) 09/03/21 23:18 Urine Blood Neg (Negative) 09/03/21 23:18 Urine Nitrite Neg (Negative) 09/03/21 23:18 Urine Bilirubin Neg (Negative) 09/03/21 23:18 Urine Urobilinogen < 2.0 mg/dL (<2.0) 09/03/21 23:18 Ur Leukocyte Esterase Neg (Negative) 09/03/21 23:18 Urine WBC (Auto) 4.0 /HPF (0.0-6.0) 09/03/21 23:18 Urine RBC (Auto) 1.0 /HPF (0.0-6.0) 09/03/21 23:18 U Epithel Cells (Auto) 1.0 /HPF (0-13.0) 09/03/21 23:18 [place]/IV: Voiding Method Urinal Active Medications - Current Medications Current Medications: Generic Name Dose Route Start Last Admin Trade Name Freq PRN Reason Stop Dose Admin Acetaminophen 650 mg 09/03/21 23:46 Acetaminophen 325 Mg Tab PO Q4H PRN Pain MILD(1-3)/Fever >100.5/[place]OR Aspirin 325 mg 09/04/21 10:00 09/04/21 10:30 Aspirin Ec 325 Mg Tab PO 325 mg QDAY DEV Administration Dextrose 0 ml 09/04/21 00:01 Dextrose 10% *Hypoglycemia IV PRN PRN Hypoglycemia Heparin Sodium (Porcine) 5,000 unit 09/04/21 06:00 09/04/21 06:00 Heparin 5,000 Unit/1 Ml Vial SUB-Q 5,000 unit Q8HR DEV Administration Hydralazine HCl 10 mg 09/04/21 03:59 09/04/21 06:00 Hydralazine 20 Mg/1 Ml Inj IV 10 mg Q6HR PRN Administration Hypertension Levofloxacin/Dextrose 750 mg in 150 mls @ 100 mls/hr 09/04/21 23:00 Levaquin 750mg/150ml IV Q24H DEV Protocol Metronidazole 500 mg in 100 mls @ 100 mls/hr 09/04/21 08:00 09/04/21 10:29 Flagyl 500 Mg/100 Ml IV 100 mls/hr Q8H DEV Administration Protocol Sodium Chloride 1,000 mls @ 75 mls/hr 09/04/21 05:15 09/04/21 05:59 Nacl 0.9% 1000 Ml IV 75 mls/hr DIRECT DEV Administration Insulin Human Lispro 0 unit 09/04/21 07:30 09/04/21 07:14 Insulin Lispro 100 Unit/Ml SUB-Q Not Given ACHS [facility] Protocol Magnesium Hydroxide 30 ml 09/03/21 23:46 Magnesium Hydroxide (Mom) Oral Liqd Udc PO Q4H PRN Constipation Morphine Sulfate 2 mg 09/03/21 23:46 09/04/21 07:15 Morphine 2 Mg/1 Ml Inj IV 2 mg Q4H PRN Administration Pain, Moderate (4-6) Morphine Sulfate 4 mg 09/03/21 23:46 Morphine 4 Mg/1 Ml Inj IV Q4H PRN Pain , Severe (7-10) Morphine Sulfate 2 mg 09/03/21 23:46 Morphine 4 Mg/1 Ml Inj IV Q5MIN PRN Chest Pain unrelieved by NTG Nitroglycerin 0.4 mg 09/03/21 23:46 Nitroglycerin 0.4 Mg Tab Subl SL Q5M PRN Chest Pain Ondansetron HCl 4 mg 09/03/21 23:46 09/04/21 08:30 Ondansetron 4 Mg/2 Ml Inj IV 4 mg Q8H PRN Administration Nausea And Vomiting Sodium Chloride 10 ml 09/04/21 10:00 09/04/21 10:30 Sodium Chloride 0.9% 10 Ml Flush Syringe IV 10 ml BID DEV Administration Sodium Chloride 10 ml 09/03/21 23:46 Sodium Chloride 0.9% 10 Ml Flush Syringe IV PRN PRN LINE FLUSH Tramadol HCl 50 mg 09/03/21 23:46 Tramadol 50 Mg Tab PO Q6H PRN Pain, Moderate (4-6)
--- NOTE | 2021-09-04 11:49 | Consultation ---
History of Present Illness - Reason for Consult Consult date: 09/04/21 - History of Present Illness 71 yo M arriving the emergency room male past medical history CAD, diabetes, hypertension, CVA presented to hospital complaining of chest pain. While the chest pain was his primary concern, he also noted nausea, vomiting, abdominal discomfort in the epigastric region. He otherwise denies any symptoms. His chest pain was alleviated with nitroglycerin and aspirin. Afebrile, normal white count. No cultures. Currently on Levaquin and metronidazole Imaging personally reviewed: CT abdomen pelvis: Hepatic steatosis. Bilateral perinephric fat stranding. Cannot exclude early diverticulitis. Chest CTA: No acute findings. Review of Systems: Bold if positive, otherwise negative General: fevers, chills, rigors HEENT: visual disturbance, diplopia, eye pain Respiratory: cough, sputum, hemoptysis, shortness of breath Cardiovascular: chest pain, syncope Gastrointestinal: nausea, vomiting, diarrhea, abdominal pain Genitourinary: dysuria, hematuria, flank pain Musculoskeletal: neck pain, back pain, joint pain, edema Neurologic: headaches, seizures Hematologic: easy bruising or bleeding Endocrine: night sweats, acute weight loss Skin: rash, jaundice, redness Psychiatric: suicidal, homicidal ideation Past History Past Medical History: acute [place] (X2 with stent placement), CAD, diabetes, hypertension, hyperlipidemia, stroke Past Surgical History: PTCA Social history: no significant social history Family history: no significant family history Medications and Allergies Allergies Allergy/AdvReac Type Severity Reaction Status Date / Time No Known Allergies Allergy Verified 08/17/14 00:53 Home Medications Medication Instructions Recorded Confirmed Last Taken Type metFORMIN [Glucophage] 850 mg PO BID 08/16/14 09/04/21 09/03/21 21:00 History Aspirin [Aspirin BABY CHEW TAB] 81 mg PO QDAY #30 tab.chew 08/22/14 09/04/21 09/03/21 09:00 Rx Folic Acid [Folvite] 1 mg PO DAILY #30 tablet 08/22/14 09/04/21 09/03/21 09:00 Rx ISOSORBIDE MONOnitrate [Imdur ER] 30 mg PO QDAY #30 tablet 08/22/14 09/04/21 09/03/21 09:00 Rx Metoprolol [Lopressor TAB] 50 mg PO QDAY #60 tablet 08/22/14 09/04/21 09/03/21 08:45 Rx Multivitamin Tab [Multiple Vitamin 1 each PO DAILY #30 tablet 08/22/14 09/04/21 09/03/21 09:00 Rx TAB (Theragran)] Thiamine [Vitamin B-1] 100 mg PO QDAY #30 tablet 08/22/14 09/04/21 09/03/21 09:00 Rx lisinopriL [Zestril TAB] 20 mg PO BID #60 tablet 08/22/14 09/04/21 09/03/21 21:00 Rx Glimepiride [Amaryl] 1 mg PO QAM 09/04/21 09/04/21 Unknown History Active Meds: Active Medications Acetaminophen (Acetaminophen 325 Mg Tab) 650 mg PO Q4H PRN PRN Reason: Pain MILD(1-3)/Fever >100.5/TAYLOR Aspirin (Aspirin Ec 325 Mg Tab) 325 mg PO QDAY DEV Last Admin: 09/04/21 10:30 Dose: 325 mg Dextrose (Dextrose 10% *Hypoglycemia) 0 ml IV PRN PRN PRN Reason: Hypoglycemia Heparin Sodium (Porcine) (Heparin 5,000 Unit/1 Ml Vial) 5,000 unit SUB-Q Q8HR DEV Last Admin: 09/04/21 06:00 Dose: 5,000 unit Hydralazine HCl (Hydralazine 20 Mg/1 Ml Inj) 10 mg IV Q6HR PRN PRN Reason: Hypertension Last Admin: 09/04/21 06:00 Dose: 10 mg Levofloxacin/Dextrose (Levaquin 750mg/150ml) 750 mg in 150 mls @ 100 mls/hr IV Q24H DEV; Protocol Metronidazole (Flagyl 500 Mg/100 Ml) 500 mg in 100 mls @ 100 mls/hr IV Q8H DEV; Protocol Last Admin: 09/04/21 10:29 Dose: 100 mls/hr Sodium Chloride (Nacl 0.9% 1000 Ml) 1,000 mls @ 75 mls/hr IV DIRECT DEV Last Admin: 09/04/21 05:59 Dose: 75 mls/hr Insulin Human Lispro (Insulin Lispro 100 Unit/Ml) 0 unit SUB-Q ACHS DEV; Protocol Last Admin: 09/04/21 07:14 Dose: Not Given Magnesium Hydroxide (Magnesium Hydroxide (Mom) Oral Liqd Udc) 30 ml PO Q4H PRN PRN Reason: Constipation Morphine Sulfate (Morphine 2 Mg/1 Ml Inj) 2 mg IV Q4H PRN PRN Reason: Pain, Moderate (4-6) Last Admin: 09/04/21 07:15 Dose: 2 mg Morphine Sulfate (Morphine 4 Mg/1 Ml Inj) 4 mg IV Q4H PRN PRN Reason: Pain , Severe (7-10) Morphine Sulfate (Morphine 4 Mg/1 Ml Inj) 2 mg IV Q5MIN PRN PRN Reason: Chest Pain unrelieved by NTG Nitroglycerin (Nitroglycerin 0.4 Mg Tab Subl) 0.4 mg SL Q5M PRN PRN Reason: Chest Pain Ondansetron HCl (Ondansetron 4 Mg/2 Ml Inj) 4 mg IV Q8H PRN PRN Reason: Nausea And Vomiting Last Admin: 09/04/21 08:30 Dose: 4 mg Sodium Chloride (Sodium Chloride 0.9% 10 Ml Flush Syringe) 10 ml IV BID DEV Last Admin: 09/04/21 10:30 Dose: 10 ml Sodium Chloride (Sodium Chloride 0.9% 10 Ml Flush Syringe) 10 ml IV PRN PRN PRN Reason: LINE FLUSH Tramadol HCl (Tramadol 50 Mg Tab) 50 mg PO Q6H PRN PRN Reason: Pain, Moderate (4-6) Physical Examination - Physical Exam Narrative exam: Physical Exam: Constitutional: Alert, cooperative. No acute distress Head, Ears, Nose: Normocephalic, atraumatic. External ears, nose normal Eyes: Conjunctivae/corneas clear. No icterus. No ptosis. Neck: Supple, no meningeal signs Oral: dentition fair, no thrush Cardiovascular: S1, S2 normal. Respiratory: Good air entry, clear to auscultation bilaterally GI: Soft, non-tender; bowel sounds normal. No peritoneal signs. Musculoskeletal: No pedal edema, no cyanosis. Skin: No rash or abscess Hem/Lymphatic: No palpable cervical or supraclavicular nodes. No lymphangitis Psych: Mood ok. Affect normal Neurological: Awake, alert, oriented. No gross abnormality - Constitutional Vitals: Vital Signs Temp Pulse Resp BP Pulse Ox 97.5 F L 73 17 172/95 99 09/04/21 05:33 09/04/21 06:00 09/04/21 07:45 09/04/21 08:43 09/04/21 05:33 Temperature -Last 24 Hours Temperature 97.5 F Temperature 98.2 F Temperature 97.9 F Results - Labs CBC & Chem 7: 09/04/21 05:34 09/04/21 05:34 Labs: Abnormal lab results 09/03/21 09/03/21 09/03/21 Range/Units 21:16 21:16 21:16 Lymph % (Auto) (13.4-35.0) % Cassia % (Auto) 9.4 H (0.0-7.3) % Lymph # (Auto) 0.9 L (1.2-5.4) K/mm3 Seg Neutrophils % 74.6 H (40.0-70.0) % PT 16.6 H (12.2-14.9) Sec. INR 1.20 H (0.87-1.13) D-Dimer 574.33 H (0-234) ng/mlDDU Chloride (98-107) mmol/L Creatinine (0.8-1.3) mg/dL Glucose (75-100) mg/dL AST (5-40) units/L Total Creatine Kinase 177 H (55-170) units/L Lipase (13-60) units/L Urine pH (5.0-7.0) 09/03/21 09/03/21 09/04/21 Range/Units 21:36 23:18 00:08 Lymph % (Auto) (13.4-35.0) % Cass[place] % (Auto) (0.0-7.3) % Lymph # (Auto) (1.2-5.4) K/mm3 Seg Neutrophils % (40.0-70.0) % PT (12.2-14.9) Sec. INR (0.87-1.13) D-Dimer (0-234) ng/mlDDU Chloride 96.6 L (98-107) mmol/L Creatinine 1.4 H (0.8-1.3) mg/dL Glucose 134 H 150 H (75-100) mg/dL AST 65 H (5-40) units/L Total Creatine Kinase (55-170) units/L Lipase 130 H (13-60) units/L Urine pH 8.0 H (5.0-7.0) 09/04/21 09/04/21 Range/Units 05:34 05:34 Lymph % (Auto) 8.9 L (13.4-35.0) % Cassia % (Auto) 8.0 H (0.0-7.3) % Lymph # (Auto) 0.6 L (1.2-5.4) K/mm3 Seg Neutrophils % 82.9 H (40.0-70.0) % PT (12.2-14.9) Sec. INR (0.87-1.13) D-Dimer (0-234) ng/mlDDU Chloride (98-107) mmol/L Creatinine 1.4 H (0.8-1.3) mg/dL Glucose 127 H (75-100) mg/dL AST (5-40) units/L Total Creatine Kinase (55-170) units/L Lipase (13-60) units/L Urine pH (5.0-7.0) Assessment and Plan Cultures: None A/P: 71 yo M arriving the emergency room male past medical history CAD, diabetes, hypertension, CVA now with: #Acute chest pain: Likely angina given relieved with nitroglycerin and aspirin. #Epigastric pain: Improved with above, likely radiating. CT scan with some mild inflammatory changes, however patient remains afebrile with a normal white count, urine is normal. As such do not see need for antibiotics at present. #Diabetes: tight glycemic control for best outcomes. Recs: -Stopped antibiotics -If patient develops fevers or leukocytosis, can start ceftriaxone and metronidazole. Thank you for the consult, we will continue to follow. Negro Ramos MD [facility] O: [phone] F: [phone]
--- NOTE | 2021-09-04 14:17 | Consultation ---
History of Present Illness Consult date: 09/04/21 Requesting physician: SHILAP ARRIAGA Consult reason: chest pain History of present illness: Chief complaint: "Chest pain and vomitting" Reason for consult: Chest Pain This is a 71-year-old -Malaysian male, who is a poor historian, with significant past medical history of coronary artery disease (s/p PCI in [facility]), hyperlipidemia, diabetes, hypertension, and CVA who presented to [facility] ED last night after experiencing symptom chest pain while at home sitting on his couch yesterday around 2:00pm. He rated the pain as 5/10, midsternal, without radiation. He presented to the emergency room after several hours of vomiting. He did have associated nausea, shortness of breath, dizziness, and some palpitations. At the time of exam, his pain was 2/10. Pain was reproducible to palpation of the chest. He denies syncope, cough, diarrhea or known sick contacts. Of note, patient admits heavy alcohol consumption, 1 pint of liquor per day at least [address] abdomen revealed possible diverticulitis. Please see full report for further findings. Patient seen previously during admission in 2015 by our group. However has not been seen as outpatient since that time. Past History Past Medical History: acute [place] (X2 with stent placement), CAD, diabetes, hypertension, hyperlipidemia, stroke Past Surgical History: PTCA Social history: alcohol abuse Family history: no significant family history Medications and Allergies Allergies Allergy/AdvReac Type Severity Reaction Status Date / Time No Known Allergies Allergy Verified 08/17/14 00:53 Home Medications Medication Instructions Recorded Confirmed Last Taken Type metFORMIN [Glucophage] 850 mg PO BID 08/16/14 09/04/21 09/03/21 21:00 History Aspirin [Aspirin BABY CHEW TAB] 81 mg PO QDAY #30 tab.chew 08/22/14 09/04/21 09/03/21 09:00 Rx Folic Acid [Folvite] 1 mg PO DAILY #30 tablet 08/22/14 09/04/21 09/03/21 09:00 Rx ISOSORBIDE MONOnitrate [Imdur ER] 30 mg PO QDAY #30 tablet 08/22/14 09/04/21 09/03/21 09:00 Rx Metoprolol [Lopressor TAB] 50 mg PO QDAY #60 tablet 08/22/14 09/04/21 09/03/21 08:45 Rx Multivitamin Tab [Multiple Vitamin 1 each PO DAILY #30 tablet 08/22/14 09/04/21 09/03/21 09:00 Rx TAB (Theragran)] Thiamine [Vitamin B-1] 100 mg PO QDAY #30 tablet 08/22/14 09/04/21 09/03/21 09:00 Rx lisinopriL [Zestril TAB] 20 mg PO BID #60 tablet 08/22/14 09/04/21 09/03/21 21:00 Rx Glimepiride [Amaryl] 1 mg PO QAM 09/04/21 09/04/21 Unknown History Active Meds: Active Medications Acetaminophen (Acetaminophen 325 Mg Tab) 650 mg PO Q4H PRN PRN Reason: Pain MILD(1-3)/Fever >100.5/TAYLOR Aspirin (Aspirin Ec 325 Mg Tab) 325 mg PO QDAY [facility] Last Admin: 09/04/21 10:30 Dose: 325 mg Dextrose (Dextrose 10% *Hypoglycemia) 0 ml IV PRN PRN PRN Reason: Hypoglycemia Heparin Sodium (Porcine) (Heparin 5,000 Unit/1 Ml Vial) 5,000 unit SUB-Q Q8HR [facility] Last Admin: 09/04/21 06:00 Dose: 5,000 unit Hydralazine HCl (Hydralazine 20 Mg/1 Ml Inj) 10 mg IV Q6HR PRN PRN Reason: Hypertension Last Admin: 09/04/21 06:00 Dose: 10 mg Sodium Chloride (Nacl 0.9% 1000 Ml) 1,000 mls @ 75 mls/hr IV DIRECT [facility] Last Admin: 09/04/21 05:59 Dose: 75 mls/hr Insulin Human Lispro (Insulin Lispro 100 Unit/Ml) 0 unit SUB-Q ACHS [facility]; Protocol Last Admin: 09/04/21 07:14 Dose: Not Given Magnesium Hydroxide (Magnesium Hydroxide (Mom) Oral Liqd Udc) 30 ml PO Q4H PRN PRN Reason: Constipation Morphine Sulfate (Morphine 2 Mg/1 Ml Inj) 2 mg IV Q4H PRN PRN Reason: Pain, Moderate (4-6) Last Admin: 09/04/21 07:15 Dose: 2 mg Morphine Sulfate (Morphine 4 Mg/1 Ml Inj) 4 mg IV Q4H PRN PRN Reason: Pain , Severe (7-10) Morphine Sulfate (Morphine 4 Mg/1 Ml Inj) 2 mg IV Q5MIN PRN PRN Reason: Chest Pain unrelieved by NTG Nitroglycerin (Nitroglycerin 0.4 Mg Tab Subl) 0.4 mg SL Q5M PRN PRN Reason: Chest Pain Ondansetron HCl (Ondansetron 4 Mg/2 Ml Inj) 4 mg IV Q8H PRN PRN Reason: Nausea And Vomiting Last Admin: 09/04/21 08:30 Dose: 4 mg Sodium Chloride (Sodium Chloride 0.9% 10 Ml Flush Syringe) 10 ml IV BID DEV Last Admin: 09/04/21 10:30 Dose: 10 ml Sodium Chloride (Sodium Chloride 0.9% 10 Ml Flush Syringe) 10 ml IV PRN PRN PRN Reason: LINE FLUSH Tramadol HCl (Tramadol 50 Mg Tab) 50 mg PO Q6H PRN PRN Reason: Pain, Moderate (4-6) Review of Systems All systems: negative Constitutional: no fever, no chills Cardiovascular: chest pain, orthopnea, palpitations, shortness of breath, no edema, no syncope, no lightheadedness, no dyspnea on exertion, no paroxysmal nocturnal dyspnea, no leg edema Respiratory: shortness of breath, no cough Gastrointestinal: abdominal pain, nausea, vomiting, no diarrhea Musculoskeletal: neck pain Integumentary: no rash Neurological: no syncope Physical Examination Vital Signs - 12hr 09/04/21 09/04/21 09/04/21 02:36 04:00 05:33 Temperature 98.2 F 97.5 F L Pulse Rate 84 86 73 Respiratory 18 18 Rate Blood Pressure 175/95 170/90 O2 Sat by Pulse 98 99 Oximetry 09/04/21 09/04/21 09/04/21 06:00 07:15 07:45 Temperature Pulse Rate 73 Respiratory 17 17 Rate Blood Pressure 170/90 O2 Sat by Pulse Oximetry 09/04/21 09/04/21 09/04/21 08:07 08:39 08:40 Temperature Pulse Rate Respiratory Rate Blood Pressure 175/90 171/93 179/97 O2 Sat by Pulse Oximetry 09/04/21 09/04/21 09/04/21 08:41 08:42 08:43 Temperature Pulse Rate Respiratory Rate Blood Pressure 183/92 174/91 172/95 O2 Sat by Pulse Oximetry 09/04/21 09/04/21 11:20 12:31 Temperature 98.4 F Pulse Rate 103 H Respiratory 22 Rate Blood Pressure 153/77 O2 Sat by Pulse 93 98 Oximetry General appearance: no acute distress HEENT: Positive: Normocephaly, Mucus Membranes Moist Neck: Positive: neck supple, trachea midline Cardiac: Positive: Reg Rate and Rhythm, S1/S2 Lungs: Positive: Normal Exam, clear to auscultation Neuro: Positive: Grossly Intact Abdomen: Positive: Soft, Active Bowel Sounds Male genitourinary: Positive: deferred Skin: Positive: Other (Warm). Negative: Rash Extremities: Present: upper extr. pulses (2+), warm. Absent: edema Results 09/04/21 05:34 09/04/21 05:34 Cardiac Enzymes 09/03/21 Range/Units 21:36 AST 65 H (5-40) units/L Coagulation 09/03/21 Range/Units 21:16 PT 16.6 H (12.2-14.9) Sec. INR 1.20 H (0.87-1.13) CBC 09/03/21 09/04/21 Range/Units 21:16 05:34 WBC 6.0 6.9 (4.5-11.0) K/mm3 RBC 4.01 3.88 (3.65-5.03) M/mm3 Hgb 12.2 11.8 (11.8-15.2) gm/dl Hct 37.1 36.5 (35.5-45.6) % Plt Count 184 182 (140-440) K/mm3 Lymph # (Auto) 0.9 L 0.6 L (1.2-5.4) K/mm3 [place] # (Auto) 0.6 0.6 (0.0-0.8) K/mm3 Eos # (Auto) 0.0 0.0 (0.0-0.4) K/mm3 Baso # (Auto) 0.1 0.0 (0.0-0.1) K/mm3 Comprehensive Metabolic Panel 09/03/21 09/04/21 09/04/21 Range/Units 21:36 00:08 05:34 Sodium 144 140 140 (137-145) mmol/L Potassium 3.8 4.4 4.9 (3.6-5.0) mmol/L Chloride 100.0 96.6 L 98.3 (98-107) mmol/L Carbon Dioxide 24 23 25 (22-30) mmol/L BUN 15 16 15 (9-20) mg/dL Creatinine 1.3 1.4 H 1.4 H (0.8-1.3) mg/dL Glucose 134 H 150 H 127 H (75-100) mg/dL Calcium 10.2 10.0 9.5 (8.4-10.2) mg/dL Direct Bilirubin < 0.2 (0-0.2) mg/dL Indirect Bilirubin 0.2 mg/dL AST 65 H (5-40) units/L ALT 35 (7-56) units/L Alkaline Phosphatase 64 (35-129) units/L Total Protein 7.7 (6.3-8.2) g/dL Albumin 4.3 (3.9-5) g/dL - Imaging and Cardiology Echo: report reviewed EKG: report reviewed EKG interpretations - Telemetry EKG Rhythm: Sinus Rhythm - EKG Sinus rhythms and dysrhythmias: sinus rhythm Repolarization changes or abnormalities: nonspecific abnormality, ST segment, and/or T wave Assessment and Plan Assessment: Atypical Chest Pain Acute Abdominal Pain- ETOH Coronary artery disease (s/p PCI x2) Hypertension H/o CVA Pulmonary hypertension Cardiographics: EKG 09/03/21-sinus rhythm, nonspecific T wave abnormalites CXR- 09/03/21-no acute finding Echocardiogram 09/04/21: Left ventricular systolic function is normal. The left ventricular ejection fraction is within the normal range. LVEF 55 to 60%. Right ventricular systolic function is normal. There is no aortic valvular stenosis. There is mitral annular calcification. Mitral valve leaflets are calcified. The pulmonary valve is normal in structure. There is no pulmonic valvular regurgitation. Stress test 09/04/21: Normal study. No scintigraphic evidence for myocardial ischemia or scar. Normal LV size and function with no regional wall motion abnormalities Recommendations/plan: Nuclear MPI stress test negative. EF 55 to 60% . See echo and MPI results as above. EKG shows no acute ischemic changes. Troponins negative x2. AMI ruled out. Continue aspirin Okay to resume home medications to include GDMT (beta-sarbjit, statin, bea-i, imdur) Noted to have elevated D-dimer. CT chest negative for acute PE Abdominal pain- infectious disease and IMS following Cardiac status stable for discharge. We will see as needed. Thank you for this consult. Recommend patient follow-up with primary care provider 1 to 2 weeks after discharge. Patient seen in conjunction with Dr. Sams, who agrees with the assessment and management of this patient. - Patient Problems (1) Diabetes Current Visit: Yes Status: Chronic (2) ETOH abuse Current Visit: Yes Status: Acute (3) Hypertension Current Visit: Yes Status: Chronic (4) CAD (coronary artery disease) Current Visit: Yes Status: Chronic (5) S/P PTCA (percutaneous transluminal coronary angioplasty) Current Visit: No Status: Chronic (6) History of stroke Current Visit: No Status: Chronic (7) Pulmonary hypertension Current Visit: No Status: Chronic (8) Acute chest pain Current Visit: Yes Status: Acute (9) Acute abdominal pain Current Visit: Yes Status: Acute
[2021-09-04] MEDS ORDERED: ZOLPIDEM 5 MG TAB PO ONE (22:20)
[2021-09-05] MEDS: INSULIN LISPRO 100 UNIT/ML SUB-Q SCH ×3 (00:30→12:16)
[2021-09-05 05:39] LABS: Basophils % (Auto) 0.4 % (0.0-1.8); Eosinophils % (Auto) 0.4 % (0.0-4.3); Hematocrit 39.8 % (35.5-45.6); Hemoglobin 12.7 gm/dl (11.8-15.2); Lymphocytes # (Auto) 0.6 K/mm3 (1.2-5.4); Lymphocytes % (Auto) 12.2 % (13.4-35.0); Mean Corpuscular HGB Conc 32 % (32-34); Mean Corpuscular Volume 94 fl (84-94); Monocytes # (Auto) 0.6 K/mm3 (0.0-0.8); Monocytes % (Auto) 10.9 % (0.0-7.3); Platelet Count 189 K/mm3 (140-440); Red Blood Count 4.24 M/mm3 (3.65-5.03); Red Cell Distribution Width 13.9 % (13.2-15.2)
[2021-09-05 05:57] LABS: BUN/Creatinine Ratio 8; Blood Urea Nitrogen 10 mg/dL (9-20); Calcium 9.6 mg/dL (8.4-10.2); Hemolysis Index 14
[2021-09-05] MEDS: HEPARIN 5,000 UNIT/1 ML VIAL SUB-Q SCH (06:19)
[2021-09-05] MEDS: ASPIRIN EC 325 MG TAB PO SCH (09:31)
[2021-09-05 11:39] VITALS: BP 184/97
--- NOTE | 2021-09-05 13:37 | Discharge Summary ---
Providers - Providers Date of Admission: 09/03/21 23:46 Date of discharge: 09/05/21 Attending physician: PHIL MARINO 09/03/21 Consult to Cardiac Rehabilitation [CONS] Routine Reason For Exam: Phase I 09/03/21 23:46 Consult to Cardiology [CONS] Routine Consulting Provider: ARACELIS TREADWELL Reason For Exam: Chest pain 09/03/21 23:52 Consult to Dietitian/Nutrition [CONS] Routine Physician Instructions: Reason For Exam: Reason for Consult: Diet education 09/04/21 07:50 Consult to Physician [CONS] Routine Comment: Consulting Provider: MEI CHAUDHRY Physician Instructions: Reason For Exam: ? diverticulitis, perinephric fat stranding Primary care physician: SR. [employer] Hospitalization Reason for admission: CP abd pain Condition: Good Hospital course: 71 yo M arriving the emergency room male past medical history CAD, diabetes, hypertension, CVA now with admission diagnosis of acute chest pain, epigastric pain and diabetes mellitus type 2. Patient was seen by cardiology and infectious disease in consultation. The chest pain was relieved with nitroglycerin and aspirin initially. Cardiology recommended echocardiogram and stress test. Echocardiogram revealed left ventricular systolic function normal with an EF of 55 to 60%. Stress test was found to be negative. Patient was a lso noted to have elevated D-dimer and underwent CT chest that was negative for acute PE. With regards to the abdominal pain, CT scan shows some mild inflammatory changes suggestive of diverticulitis and or perinephric stranding. ID felt that patient's findings were not consistent with infection with a normal urine and normal white count. Patient was also afebrile. IV antibiotics were initially started but stopped. Therefore, patient is felt to have received maximal hospital benefit and will be discharged home. Cardiology recommends that the patient resume GDMT with beta-sarbjit, statin, KYLAH inhibitor and Imdur. Dedicated discharge time 35 minutes Disposition: 30 STILL A PATIENT Final Discharge Diagnosis (Prints w/discharge instructions): Chest pain with etiology likely secondary to GERD, epigastric pain, diabetes mellitus type 2 Core Measure Documentation - Palliative Care Palliative Care/ Comfort Measures: Not Applicable - Core Measures Any of the following diagnoses?: none Exam - Constitutional Vitals: Temp Pulse Resp BP Pulse Ox 98.9 F 101 H 18 184/97 94 09/05/21 08:15 09/05/21 08:15 09/05/21 08:15 09/05/21 08:15 09/05/21 08:15 General appearance: Present: no acute distress, well-nourished - EENT Eyes: Present: PERRL ENT: hearing intact, clear oral mucosa - Neck Neck: Present: supple, normal ROM - Respiratory Respiratory effort: normal Respiratory: bilateral: CTA - Cardiovascular Heart Sounds: Present: S1 & S2. Absent: rub, click - Extremities Extremities: pulses symmetrical, No edema Peripheral Pulses: within normal limits - Abdominal General gastrointestinal: Present: soft, non-tender, non-distended, normal bowel sounds Male genitourinary: Present: normal - Integumentary Integumentary: Present: clear, warm, dry - Musculoskeletal Musculoskeletal: gait normal, strength equal bilaterally - Psychiatric Psychiatric: appropriate mood/affect, intact judgment & insight - Neurologic Neurologic: CNII-XII intact, moves all extremities Plan Activity: advance as tolerated Weight Bearing Status: Weight Bear as Tolerated Diet: diabetic Follow up with: PRIMARY MD PRICILLA [Primary Care Provider] - 3-5 Days KARLI AL MD [Staff Physician] - 7 Days
--- NOTE | 2021-09-05 14:19 | Electrocardiograph Report ---
Test Date: 2021-09-03 Test Time: 19:46:36 Pat Name: SONIA NAGY Department: Room: A473 1 Gender: M Glove Cutter: NURSE : 1950 Requested By: SHILPA ARRIAGA Order Number: [id number] Reading MD: Deya Lacy Measurements Intervals [place] Rate: 86 P: 62 [place]: 175 QRS: -37 QRSD: 69 T: 34 QT: 382 QTc: 457 Interpretive Statements Sinus rhythm Inferior infarct, old No previous ECG available for comparison Electronically Signed On 09-05-2021 14:18:42 EDT by Deya Lacy
--- NOTE | 2021-09-05 14:25 | Electrocardiograph Report ---
[facility] Test Date: 2021-09-04 Test Time: 11:45:39 Pat Name: SONIA NAGY Department: Room: A473 1 Gender: M Brusher Tender: DANIELLA : 1950 Requested By: SHILPA ARRIAGA Order Number: [id number] Reading MD: Deya Lacy Measurements Intervals [place] Rate: 84 P: 49 AR: 173 QRS: -39 QRSD: 71 T: 17 QT: 390 QTc: 460 Interpretive Statements Sinus rhythm Inferior infarct, old Compared to ECG 09/03/2021 19:46:36 No significant changes Electronically Signed On 09-05-2021 14:25:13 EDT by Deya Lacy
--- NOTE | 2021-09-05 14:33 | Electrocardiograph Report ---
[facility] Test Date: 2021-09-05 Test Time: 08:02:58 Pat Name: SONIA NAGY Department: Room: A473 1 Gender: M Ct Technician: DANIELLA : 1950 Requested By: CHRISTAL SHERIDAN Order Number: [id number] Reading MD: Deya Lacy Measurements Intervals [place] Rate: 93 P: 44 [place]: 168 QRS: -39 QRSD: 64 T: 19 QT: 357 QTc: 445 Interpretive Statements Sinus rhythm Inferior infarct, old Left axis deviation Compared to ECG 09/04/2021 11:45:39 No significant changes Electronically Signed On 09-05-2021 14:32:46 EDT by Deya Lacy
--- NOTE | 2021-09-05 15:08 | Progress Note ---
Assessment and Plan Cultures: None A/P: 71 yo M arriving the emergency room male past medical history CAD, diabetes, hypertension, CVA now with: #Acute chest pain: Likely angina given relieved with nitroglycerin and aspirin. #Epigastric pain: Improved with above, likely radiating. CT scan with some mild inflammatory changes, however patient remains afebrile with a normal white count, urine is normal. As such do not see need for antibiotics at present. #Diabetes: tight glycemic control for best outcomes. Recs: -Stopped antibiotics -If patient develops fevers or leukocytosis, can start ceftriaxone and metronidazole. Thank you for the consult, we will continue to follow. Negro Ramos MD [facility] ([facility]) O: [phone] F: [phone] Subjective Date of service: 09/05/21 Interval history: Afebrile, normal white count. Doing better. Objective - Exam Narrative Exam: Physical Exam: Constitutional: Alert, cooperative. No acute distress Head, Ears, Nose: Normocephalic, atraumatic. External ears, nose normal Eyes: Conjunctivae/corneas clear. No icterus. No ptosis. Neck: Supple, no meningeal signs Oral: dentition fair, no thrush Cardiovascular: S1, S2 normal. Respiratory: Good air entry, clear to auscultation bilaterally GI: Soft, non-tender; bowel sounds normal. No peritoneal signs. Musculoskeletal: No pedal edema, no cyanosis. Skin: No rash or abscess Hem/Lymphatic: No palpable cervical or supraclavicular nodes. No lymphangitis Psych: Mood ok. Affect normal Neurological: Awake, alert, oriented. No gross abnormality - Constitutional Vitals: Vital Signs Temp Pulse Resp BP Pulse Ox 98.9 F 101 H 18 184/97 94 09/05/21 08:15 09/05/21 08:15 09/05/21 08:15 09/05/21 08:15 09/05/21 08:15 Temperature -Last 24 Hours Temperature 98.9 F Temperature 98.1 F Temperature 99.0 F Temperature 98.9 F Temperature 98.4 F - Labs CBC & Chem 7: 09/05/21 05:14 09/05/21 05:14 Labs: Abnormal lab results 09/04/21 09/04/21 09/05/21 Range/Units 15:37 21:12 05:14 Lymph % (Auto) 12.2 L (13.4-35.0) % [place] % (Auto) 10.9 H (0.0-7.3) % Lymph # (Auto) 0.6 L (1.2-5.4) K/mm3 Seg Neutrophils % 76.1 H (40.0-70.0) % Glucose (75-100) mg/dL POC Glucose 134 H 118 H (70-105) mg/dL 09/05/21 Range/Units 05:14 Lymph % (Auto) (13.4-35.0) % [place] % (Auto) (0.0-7.3) % Lymph # (Auto) (1.2-5.4) K/mm3 Seg Neutrophils % (40.0-70.0) % Glucose 123 H (75-100) mg/dL POC Glucose (70-105) mg/dL
== END 2021-09-05 15:40 | disposition home or self-care (01) ==
LOC: ED 19:17 → 4A 23:46 → INTOOBSV 23:46 → 4A 09-04 00:43
PROVIDERS: ADMIT Internal Medicine Geriatric Medicine; ATTEND Hospitalist
DX: R07.89 Other chest pain (principal); K57.92 Diverticulitis of intestine, part unspecified, without perforation or abscess without bleeding; I25.10 Atherosclerotic heart disease of native coronary artery without angina pectoris; I10 Essential (primary) hypertension; E11.9 Type 2 diabetes mellitus without complications; R10.13 Epigastric pain; R11.2 Nausea with vomiting, unspecified; I25.2 Old myocardial infarction; E78.5 Hyperlipidemia, unspecified; F10.129 Alcohol abuse with intoxication, unspecified; Z95.1 Presence of aortocoronary bypass graft; Z86.73 Personal history of transient ischemic attack (TIA), and cerebral infarction without residual deficits; Z79.84 Long term (current) use of oral hypoglycemic drugs; Z79.899 Other long term (current) drug therapy; Z98.890 Other specified postprocedural states; Z79.82 Long term (current) use of aspirin; Z79.4 Long term (current) use of insulin
CPT/HCPCS: 36415; 71045; 71275; 74177; 78452; 80048; 80076; 81001; 82550; 82962; 83690; 83735; 84484; 85025; 85379; 85610; 93005; 93017; 96361; 96365; 96366; 96368; 96372; 96375; 96376; 99285; A9502; C8929; C9113; G0378; J0360; J1644; J1956; J2270; J2405; J2765; J2785; J7030; J7040; J7517; Q9967; 93306; 96374; Q0162; J1815